=== PATIENT | female | born 1965 | race Caucasian/White ===

== ENCOUNTER 2021-04-30 07:31 | Outpatient (CLI) | payer BC, SELFPAY ==
--- NOTE | 2021-04-30 07:37 | US_ITS ---
STUDY: THYROID ULTRASOUND REASON FOR EXAM: Female, 55 years old. History of thyroid nodules. TECHNIQUE: Ultrasound evaluation of the thyroid was performed with real-time and static strange-scale imaging. COMPARISON: None. FINDINGS: RIGHT LOBE: The right lobe of the thyroid gland measures 5.2 cm x 2.5 cm x 2.7 cm. There is a homogeneous echotexture. There is a 3.2 cm x 2.6 cm x 2.1 cm complex solid and cystic mass in the mid and lower portion of the thyroid gland. Biopsy recommended. This also evidence of a 6 mm x 5 mm x 5 mm hypoechoic solid nodule. TIRADS Category 4 LEFT LOBE: The left lobe of the thyroid gland measures 5.5 cm x 1.9 cm x 3.1 cm. There is a homogeneous echotexture. There is a 2 cm x 1.6 cm x 1.3 cm hypoechoic solid nodule in the midpole. This also evidence of a 2 cm x 1.4 cm x 1.9 cm complex solid and cystic nodule. Biopsy is recommended. TIRADS Category 4 ISTHMUS: The isthmus measures 4 . The regional lymph nodes are normal. US/Thyroid IMPRESSION: Enlarged thyroid with bilateral complex solid and cystic nodules as described. Biopsy recommended. Electronically Signed: Stefan Guerrier MD at 11:07 EST ,
== END 2021-04-30 23:59 | disposition short-term general hospital (02) ==
LOC: US 07:36
PROVIDERS: PCP Internal Medicine; Referring Provider Internal Medicine; Visit Provider Internal Medicine
DX: E04.1 Nontoxic single thyroid nodule (principal)
CPT/HCPCS: 76536

== ENCOUNTER 2021-05-14 15:32 | Outpatient (CLI) | payer BC, SELFPAY ==
--- NOTE | 2021-05-14 12:30 | ASPS_PTH ---
PATIENT: JANET SEO [facility]: [facility] U#:[id number] AGE/SX: 55/F ROOM: RE05/14/[address]: Dr. Sean Sanchez MD : 1965 BED: DIS: 05/14/2021 SPEC #: [id number] RECD: 05/14/21 15:24 STATUS: BC ISADORA #: [id number] MOODY: 05/14/21 12:[address]: Sean Sanchez DEPT: CYTOLOGY RECD BY: Ankita Cedillo ENTERED: 05/15/21 09:52 SP TYPE: ASPIRATION OTHR DR: Dr. María Reid MD Tissues: A - Thyroid gland, NOS B - Thyroid gland, NOS C - Thyroid gland, NOS Procedures: Special Stain Group II Cytology Other HEADER OPERATION: Bilateral thyroid fine needle aspiration PRE-OP DIAGNOSIS: Bilateral thyroid nodule TISSUE SUBMITTED: A ? Left superior thyroid nodule x8 slides, B ? Left inferior mid pole thyroid nodule x6 slides, C ? Right thyroid nodule x6 slides DIAGNOSIS CYTOLOGY A. Fine needle aspiration, left superior thyroid nodule (smears): Adequate for evaluation. Negative, consistent with benign colloid/follicular nodule. B. Fine needle aspiration, left inferior mid pole thyroid nodule (smears): Adequate for evaluation. Negative, consistent with benign colloid/follicular nodule. Cystic change present. C. Fine needle aspiration, right thyroid nodule (smears): Adequate for evaluation. Benign, consistent with colloid/follicular nodule. AM:henri 05/16/2021 CYTOLOGY STUDY Slides are reviewed. CYTOLOGY GROSS A - Received are eight smears labeled with the patient's name and designated per the requisition as left superior thyroid nodule. Submitted for staining. B - Received are six smears labeled with the patient's name and designated per the requisition as left inferior mid pole thyroid nodule. Submitted for staining. C - Received are eight smears labeled with the patient's name and designated per the requisition as right thyroid nodule. Submitted for staining. / henri 05/15/2021 TC:5 CPT: 51985 x3
== END 2021-05-14 23:59 | disposition home or self-care (01) ==
LOC: LABSPEC 15:33
PROVIDERS: PCP Internal Medicine; Visit Provider Surgery
DX: E04.2 Nontoxic multinodular goiter (principal)
CPT/HCPCS: 88161; 88313

== ENCOUNTER 2021-05-30 08:39 | Outpatient (CLI) | payer BC, SELFPAY ==
[2021-05-30 09:50] LABS: EXAGEN MAILED SPECIMEN
[2021-05-30 10:30] LABS: Color, Urine Yellow (Yellow); Glucose, Dipstick Normal (Normal); Ketone-Dipstick Negative (Negative); Leukocyte Esterase-Dipstick 100 /ul (Negative); Nitrite-Dipstick Negative (Negative); Occult Blood-Urine Negative /ul (Negative); Protein-Dipstick Negative (Negative); Urine Bilirubin Dipstick Negative (Negative); Urine Clarity Clear (Clear); Urine Urobilinogen Normal (Normal)
[2021-05-30 10:31] LABS: Absolute Lymphocyte Count 0.85 X10^3/uL (0.83-4.51); Absolute Neutrophil Count 3.2 X10^3/uL (2.0-7.7); Basophil# 0.05 X10^3/uL; Basophil% 1.1 % (0-1); Eosinophil# 0.26 X10^3/uL; Eosinophils% 5.5 % (0-5); Hematocrit 41.3 % (37-47); Hemoglobin 14.2 g/dL (12.0-15.0); Lymphocyte # 0.85 X10^3/ul (0.83-4.51); Lymphocyte % 18.1 % (19-41); Mean Corp Hgb Conc 34.4 g/dL (32-36); Mean Corpuscular Hgb 30.9 pg (27.0-32.0); Mean Corpuscular Volume 89.8 fL (81-99); Mean Platelet Vol. 12.2 fl (6.2-12.0); Monocyte# 0.31 X10^3/uL; Monocyte% 6.6 % (0-10); NRBC Flagged by Analyzer 0 % (0-5); Neutrophil # 3.21 X10^3/uL (2.7-7.7); Neutrophil % 68.5 % (47-70); Platelet Count 245 K/mm3 (150-450); RBC Distribution Width CV 12.3 % (11.6-14.6); RBC Distribution Width SD 40.2 fl (35.1-43.9); White Blood Count 4.7 K/mm3 (4.4-11.0)
[2021-05-30 10:48] LABS: International Normalized Ratio 0.9; Prothrombin Time (Protime)PT. 11.8 SECONDS (11.7-14.9)
[2021-05-30 10:49] LABS: Partial Thromboplast Time 34.4 Seconds (24.1-36.2)
[2021-05-30 11:04] LABS: ALB/GLOB Ratio 1.1 RATIO (0.9-2.4); AST(SGOT) 21 U/L (15-37); Alanine Aminotransfer ALT/SGPT 25 U/L (13-56); Albumin, Serum 3.7 g/dL (3.2-5.0); Alkaline Phosphatase 98 U/L (45-117); Anion Gap 6 (5-15); BUN 20 mg/dL (7-18); BUN/Creat Ratio 22.3 RATIO (10-20); Calcium,Total 8.4 mg/dL (8.5-10.1); Chloride 107 mmol/L (98-107); EST Glomerular Filtration Rate 70 mL/min (>60); Est Glom Filt Rate - Afr Amer 84 mL/min (>60); Globulin 3.4 g/dL (2.2-4.2); Glucose 87 mg/dL (74-106); Potassium 3.9 mmol/L (3.5-5.1); Protein, Total 7.1 g/dL (6.4-8.2); Sodium Level 139 mmol/L (136-145)
[2021-05-30 11:14] LABS: Protein:Creat Ratio 129 mg/g CRE (0-200)
[2021-05-30 11:38] LABS: Hepatitis B Surface Antibody Reactive; Hepatitis B Surface Antigen Non-Reactive (Nonreactive); Hepatitis C Antibody Non-Reactive (Nonreactive)
[2021-06-01 02:07] LABS: Dilute Prothrombin Time (dPT) 42.2 sec (0.0-47.6); Dilute Russell Viper Venom 45.4 sec (0.0-47.0); Hexagonal Phase Phospholipid 2 sec (0-11); PTT-LA 41.7 sec (0.0-51.9); Thrombin Time 18.8 sec (0.0-23.0)
[2021-06-01 15:20] LABS: Thrombin Time 19.1 sec (0.0-23.0)
[2021-06-01 15:21] LABS: Interpretation Comment: (.)
== END 2021-05-30 23:59 | disposition home or self-care (01) ==
LOC: MTLAB 08:41
PROVIDERS: PCP Internal Medicine; Referring Provider Internal Medicine Rheumatology; Visit Provider Internal Medicine Rheumatology
DX: M06.4 Inflammatory polyarthropathy (principal); R76.8 Other specified abnormal immunological findings in serum; M17.0 Bilateral primary osteoarthritis of knee; J30.9 Allergic rhinitis, unspecified
CPT/HCPCS: 36415; 80053; 81002; 82570; 84156; 85025; 85598; 85610; 85670; 85730; 86706; 86803; 87340

== ENCOUNTER → 2021-08-09 | Outpatient (CLI) | payer BC, SELFPAY ==
--- NOTE | 2021-08-09 08:21 | BI_ITS ---
MAMMOGRAPHY - BILATERAL SCREENING REASON FOR EXAM: Female, 56 years old. Routine annual screening examination. PERTINENT HISTORY: Non-contributory. TECHNIQUE: Digital bilateral breast josh (3D mammographic acquisition) in the CC and MLO projections. 2-D mediolateral oblique (MLO) and craniocaudad (CC) views of both breasts were obtained. CAD: Full Field Digital Mammography with Computer Added Detection was performed. COMPARISON: Comparison is made with prior outside examination in 11/09/2019. FINDINGS: Breast Composition: The breasts are heterogeneously dense, which may obscure small masses. There are no dominant masses or suspicious calcifications. Stable benign-appearing bilateral axillary lymph nodes. No other significant abnormalities are identified. There has been no significant change since the prior study. BI/SCRN MAMM (CAD)W/JOSH BILAT IMPRESSION: Stable bilateral screening mammogram. Yearly follow-up mammogram recommended. (A) ASSESSMENT CATEGORY: BIRADS Category 2: Benign. A letter regarding these results will be sent to the patient by the facility within 30 days. Approximately 10% of breast cancers are not detected by mammography. A normal mammogram should not delay biopsy of a clinically suspicious abnormality. [id number] Electronically Signed: Stefan Guerrier MD at 12:15 EDT ,
== END | disposition home or self-care (01) ==
LOC: OPBI 08:20
PROVIDERS: PCP Internal Medicine; Visit Provider Obstetrics & Gynecology
DX: Z12.31 Encounter for screening mammogram for malignant neoplasm of breast (principal)
CPT/HCPCS: 77063; 77067

== ENCOUNTER → 2021-09-17 | Outpatient (CLI) | payer BC, SELFPAY ==
[2021-09-17 10:31] LABS: Absolute Lymphocyte Count 0.78 X10^3/uL (0.83-4.51); Absolute Neutrophil Count 2.6 X10^3/uL (2.0-7.7); Basophil# 0.07 X10^3/uL; Basophil% 1.7 % (0-1); Eosinophil# 0.28 X10^3/uL; Hematocrit 38.5 % (37-47); Hemoglobin 13.6 g/dL (12.0-15.0); Lymphocyte # 0.78 X10^3/ul (0.83-4.51); Lymphocyte % 19.4 % (19-41); Mean Corp Hgb Conc 35.3 g/dL (32-36); Mean Corpuscular Hgb 31.5 pg (27.0-32.0); Mean Corpuscular Volume 89.1 fL (81-99); Mean Platelet Vol. 12.6 fl (6.2-12.0); Monocyte% 7.5 % (0-10); NRBC Flagged by Analyzer 0 % (0-5); Neutrophil # 2.58 X10^3/uL (2.7-7.7); Neutrophil % 64.2 % (47-70); Platelet Count 252 K/mm3 (150-450); RBC Distribution Width CV 12.1 % (11.6-14.6); RBC Distribution Width SD 38.7 fl (35.1-43.9); Red Blood Count 4.32 M/mm3 (4.2-5.4)
[2021-09-17 10:54] LABS: ALB/GLOB Ratio 1.1 RATIO (0.9-2.4); AST(SGOT) 23 U/L (15-37); Alanine Aminotransfer ALT/SGPT 29 U/L (13-56); Albumin, Serum 3.5 g/dL (3.2-5.0); Alkaline Phosphatase 87 U/L (45-117); Anion Gap 6 (5-15); BUN 21 mg/dL (7-18); BUN/Creat Ratio 21.1 RATIO (10-20); Calcium,Total 8.7 mg/dL (8.5-10.1); Chloride 112 mmol/L (98-107); EST Glomerular Filtration Rate 62 mL/min (>60); Est Glom Filt Rate - Afr Amer 75 mL/min (>60); Globulin 3.2 g/dL (2.2-4.2); Glucose 90 mg/dL (74-106); Potassium 4.1 mmol/L (3.5-5.1); Protein, Total 6.7 g/dL (6.4-8.2); Sodium Level 142 mmol/L (136-145)
== END | disposition home or self-care (01) ==
LOC: MTLAB 08:16
PROVIDERS: PCP Internal Medicine; Referring Provider Internal Medicine Rheumatology; Visit Provider Internal Medicine Rheumatology
DX: M06.4 Inflammatory polyarthropathy (principal); R76.8 Other specified abnormal immunological findings in serum; M17.0 Bilateral primary osteoarthritis of knee; J30.9 Allergic rhinitis, unspecified
CPT/HCPCS: 36415; 80053; 85025

== ENCOUNTER → 2022-04-05 | Outpatient (CLI) | payer BC, SELFPAY ==
[2022-04-05 10:09] LABS: Absolute Lymphocyte Count 0.77 X10^3/uL (0.83-4.51); Absolute Neutrophil Count 2.7 X10^3/uL (2.0-7.7); Basophil# 0.08 X10^3/uL; Eosinophil# 0.19 X10^3/uL; Eosinophils% 4.7 % (0-5); Lymphocyte # 0.77 X10^3/ul (0.83-4.51); Mean Corp Hgb Conc 35.7 g/dL (32-36); Mean Corpuscular Hgb 32.5 pg (27.0-32.0); Mean Corpuscular Volume 91.1 fL (81-99); Mean Platelet Vol. 12.3 fl (6.2-12.0); Monocyte# 0.31 X10^3/uL; Monocyte% 7.6 % (0-10); NRBC Flagged by Analyzer 0 % (0-5); Neutrophil % 66.5 % (47-70); Platelet Count 246 K/mm3 (150-450); RBC Distribution Width CV 12.1 % (11.6-14.6); RBC Distribution Width SD 39.8 fl (35.1-43.9); Red Blood Count 4.61 M/mm3 (4.2-5.4); White Blood Count 4.1 K/mm3 (4.4-11.0)
[2022-04-05 10:17] LABS: Glucose, Dipstick Normal (Normal); Ketone-Dipstick Negative (Negative); Leukocyte Esterase-Dipstick 500 /ul (Negative); Nitrite-Dipstick Negative (Negative); Occult Blood-Urine Negative /ul (Negative); Protein-Dipstick 15 mg/dl (Negative); Specific Gravity, Urine 1.025 (1.002-1.030); Urine Bilirubin Dipstick Negative (Negative); Urine Urobilinogen Normal (Normal)
[2022-04-05 10:21] LABS: Color, Urine Yellow (Yellow); Urine Clarity Clear (Clear)
[2022-04-05 10:49] LABS: ALB/GLOB Ratio 1.2 RATIO (0.9-2.4); AST(SGOT) 26 U/L (15-37); Alanine Aminotransfer ALT/SGPT 37 U/L (13-56); Albumin, Serum 3.8 g/dL (3.2-5.0); Alkaline Phosphatase 85 U/L (45-117); Anion Gap 11 (5-15); BUN 27 mg/dL (7-18); BUN/Creat Ratio 28.7 RATIO (10-20); Calcium,Total 9.4 mg/dL (8.5-10.1); Chloride 108 mmol/L (98-107); Creatinine, Serum 0.94 mg/dL (0.55-1.02); EST Glomerular Filtration Rate 66 mL/min (>60); Est Glom Filt Rate - Afr Amer 80 mL/min (>60); Globulin 3.3 g/dL (2.2-4.2); Glucose 79 mg/dL (74-106); Potassium 3.6 mmol/L (3.5-5.1); Protein, Total 7.1 g/dL (6.4-8.2); Sodium Level 141 mmol/L (136-145)
[2022-04-05 10:50] LABS: Protein, Urine (Random) 32.8 mg/dL (<11.9); Protein:Creat Ratio 273 mg/g CRE (0-200)
[2022-04-06 10:23] LABS: Complement C3 107 mg/dL (82-167)
[2022-04-08 16:20] LABS: Anti-dsDNA Ab 10 IU/mL (0-9)
== END | disposition home or self-care (01) ==
LOC: MTLAB 08:10
PROVIDERS: PCP Internal Medicine; Referring Provider Internal Medicine Rheumatology; Visit Provider Internal Medicine Rheumatology
DX: M06.4 Inflammatory polyarthropathy (principal); M32.9 Systemic lupus erythematosus, unspecified; M17.0 Bilateral primary osteoarthritis of knee; J30.9 Allergic rhinitis, unspecified; Z79.899 Other long term (current) drug therapy
CPT/HCPCS: 80053; 81002; 82570; 84156; 85025; 86160; 86225

== ENCOUNTER → 2022-07-29 | Outpatient (CLI) | payer BC, SELFPAY ==
[2022-07-29 10:24] LABS: Absolute Lymphocyte Count 0.97 X10^3/uL (0.83-4.51); Absolute Neutrophil Count 2.3 X10^3/uL (2.0-7.7); Basophil# 0.06 X10^3/uL; Basophil% 1.5 % (0-1); Eosinophil# 0.28 X10^3/uL; Eosinophils% 7.2 % (0-5); Hematocrit 39.4 % (37-47); Hemoglobin 13.6 g/dL (12.0-15.0); Lymphocyte # 0.97 X10^3/ul (0.83-4.51); Mean Corp Hgb Conc 34.5 g/dL (32-36); Mean Corpuscular Hgb 32.6 pg (27.0-32.0); Mean Corpuscular Volume 94.5 fL (81-99); Mean Platelet Vol. 12.5 fl (6.2-12.0); Monocyte% 7.7 % (0-10); NRBC Flagged by Analyzer 0 % (0-5); Neutrophil # 2.26 X10^3/uL (2.7-7.7); Neutrophil % 58.3 % (47-70); Platelet Count 215 K/mm3 (150-450); RBC Distribution Width CV 11.9 % (11.6-14.6); RBC Distribution Width SD 40.6 fl (35.1-43.9); Red Blood Count 4.17 M/mm3 (4.2-5.4); White Blood Count 3.9 K/mm3 (4.4-11.0)
[2022-07-29 10:31] LABS: Protein, Urine (Random) 24.8 mg/dL (<11.9); Protein:Creat Ratio 219 mg/g CRE (0-200)
[2022-07-29 10:38] LABS: Color, Urine Yellow (Yellow); Glucose, Dipstick Normal (Normal); Ketone-Dipstick Negative (Negative); Leukocyte Esterase-Dipstick 100 /ul (Negative); Nitrite-Dipstick Negative (Negative); Occult Blood-Urine Negative /ul (Negative); Protein-Dipstick 15 mg/dl (Negative); Urine Bilirubin Dipstick Negative (Negative); Urine Clarity Sl. Cloudy (Clear); Urine Urobilinogen Normal (Normal)
[2022-07-29 10:50] LABS: ALB/GLOB Ratio 1.1 RATIO (0.9-2.4); AST(SGOT) 22 U/L (15-37); Alanine Aminotransfer ALT/SGPT 33 U/L (13-56); Albumin, Serum 3.5 g/dL (3.2-5.0); Alkaline Phosphatase 83 U/L (45-117); Anion Gap 6 (5-15); BUN 21 mg/dL (7-18); Calcium,Total 8.8 mg/dL (8.5-10.1); Chloride 109 mmol/L (98-107); Creatinine, Serum 0.91 mg/dL (0.55-1.02); EST Glomerular Filtration Rate 68 mL/min (>60); Est Glom Filt Rate - Afr Amer 82 mL/min (>60); Globulin 3.1 g/dL (2.2-4.2); Glucose 93 mg/dL (74-106); Potassium 3.6 mmol/L (3.5-5.1); Protein, Total 6.6 g/dL (6.4-8.2); Sodium Level 144 mmol/L (136-145)
[2022-07-30 05:07] LABS: Complement C3 98 mg/dL (82-167)
[2022-07-30 13:08] LABS: Anti-dsDNA Ab 9 IU/mL (0-9)
== END | disposition home or self-care (01) ==
LOC: MTLAB 08:04
PROVIDERS: PCP Internal Medicine; Referring Provider Internal Medicine Rheumatology; Visit Provider Internal Medicine Rheumatology
DX: M06.4 Inflammatory polyarthropathy (principal); M32.9 Systemic lupus erythematosus, unspecified; Z79.899 Other long term (current) drug therapy
CPT/HCPCS: 36415; 80053; 81002; 82570; 84156; 85025; 86160; 86225

== ENCOUNTER → 2022-10-07 | Outpatient (CLI) | payer BC, SELFPAY ==
--- NOTE | 2022-10-07 07:23 | US_ITS ---
INDICATION: yearly f/u thyroid nodule EXAMINATION: Ultrasound US Thyroid (eg thyroid, parathyroid, parotid) TECHNIQUE: Holly scale and color doppler imaging was performed of the thyroid gland. COMPARISON: None. FINDINGS: RIGHT THYROID LOBE: 5.8 x 2.5 x 2.8 cm. Heterogeneous echotexture with normal vascularity. [ Nodules: 1. Anterior mid thyroid 3.2 x 3.0 x 2.0 cm mixed cystic solid hypoechoic nodule wider than tall with smooth margins and no calcifications, TI RAD 3, unchanged from 04/30/2021 2. Posterior mid thyroid 0.7 x 0.8 x 0.5 cm solid hypoechoic wider than tall smooth margins and no calcifications, TI RAD 4 unchanged from 04/30/2021 3. Inferior thyroid 0.6 x 0.6 x 0.5 cm solid hypoechoic wider than tall nodule with smooth margins and no calcifications, TI RAD 4, unchanged from 04/30/2021 4. Additional less conspicuous subcentimeter solid isoechoic nodules or pseudonodules are also present for which no imaging follow-up is required per ACR TI RADS criteria. , LEFT THYROID LOBE: 5.7 x 2.3 x 2.3 cm. Heterogeneous echotexture with normal vascularity. [No thyroid nodules are present. Nodules: 1. Anterior mid thyroid 2.0 x 1.3 x 1.6 cm solid mixed hypo and isoechoic nodule wider than tall smooth margins and no calcifications, TI RADS 4, unchanged from 04/30/2021 2. Posterior mid thyroid 2.4 x 2.0 x 1.8 cm mixed cystic solid isoechoic nodule wider than tall smooth margins and no calcifications, TI RAD 3, 2.0 x 1.9 x 1.4 cm on 04/30/2021 3. Additional less conspicuous subcentimeter solid isoechoic nodules or pseudonodules are also present ISTHMUS: 0.4cm.. Heterogeneous echotexture. No thyroid nodules are present. US/Thyroid IMPRESSION: Multinodular goiter. Stable anterior left mid thyroid 2.0 cm TI-RAD 4 and anterior right mid thyroid 3.2 cm TI-RAD 3 nodules compared with 04/30/2021. 1 year follow-up ultrasound is recommended if fine-needle aspiration is not obtained for histopathologic diagnosis. 2.4 cm left posterior mid thyroid TI-RAD 3 nodule with mild increase in size from prior exam, 1 year follow-up ultrasound is recommended by ACR TI-RADS criteria.. Electronically Signed: Austen Dumont MD at 8:33 EDT ,
== END | disposition home or self-care (01) ==
LOC: US 07:23
PROVIDERS: PCP Internal Medicine; Referring Provider Surgery; Visit Provider Surgery
DX: E04.1 Nontoxic single thyroid nodule (principal)
CPT/HCPCS: 76536

== ENCOUNTER → 2023-07-31 | Outpatient (CLI) | payer BC, SELFPAY ==
--- NOTE | 2023-07-31 12:52 | US_ITS ---
STUDY: THYROID ULTRASOUND REASON FOR EXAM: Female, 58 years old. Thyroid nodule TECHNIQUE: Ultrasound evaluation of the thyroid was performed with real-time and static strange-scale imaging. COMPARISON: 10/07/2022. FINDINGS: RIGHT LOBE: The right lobe of the thyroid gland measures 5.6 x 2.6 x 2.2 cm. There is a heterogeneous echotexture. There are multiple nodules in the right thyroid lobe. 5 dominant nodules are measured. Nodule 1 occupying a large portion of the right thyroid lobe is mixed solid and cystic. This measures 3.12 x 1.91 x 2.93 cm. Nodule 2 in the posterior right thyroid lobe is hypoechoic and behind the large right thyroid mass. This measures 0.67 x 0.5 x 0.69 cm. Nodule 3 is medial and behind the large right thyroid mass is mildly hypoechoic. It measures 0.52 x 0.47 x 0.47 cm. Nodule 4 is a adjacent the caudal surface of the large thyroid mass. This is isoechoic and measures 0.51 x 0.47 x 0.55 cm. Nodule 5 is mildly hyperechoic and in adjacent the medial surface of the large right thyroid mass. This measures 0.54 x 0.56 x 0.61 cm. LEFT LOBE: The left lobe of the thyroid gland measures 5.3 x 1.9 x 2.3 cm. There is a heterogeneous echotexture. There are multiple nodules in the left thyroid lobe. 4 dominant nodules are measured. Nodule 1 is largely solid with a small cystic component. This is located in the lower medial aspect of the left thyroid lobe measuring 2.20 x 2.08 x 1.71 cm. Nodule 2 in the upper thyroid lobe is heterogeneous in echogenicity. This measures 1.50 x 1.33 x 1.37 cm. Nodule 3 in the medial aspect of the left mid thyroid lobe is hypoechoic with posterior distal acoustic shadowing. This measures 1.01 x 0.73 x 0.87 cm. Nodule 4 is mildly hyperechoic but heterogeneous in echogenicity. This is in the upper thyroid lobe and overlies the dominant nodule. This measures 0.76 x 0.93 x 0.77 cm. ISTHMUS: The isthmus measures 0.34 cm. . US/Thyroid IMPRESSION: 1. Multiple nodules in both thyroid lobes. 5 dominant nodules in the right thyroid lobe are measured. 4 dominant nodules in the left thyroid lobe are measured. 2. Nodule 1 occupying a large portion of the right thyroid lobe is mixed solid and cystic. This measures 3.12 x 1.91 x 2.93 cm, previously 3.20 x 2.0 x 3.04 cm. This nodule is mixed cystic and solid, hyperechoic or isoechoic, [id number], smoothly marginated and contains no echogenic foci. TI-RADS points: 2. TI-RADS category: TR2. This nodule is not suspicious and no FNA or follow-up is necessary. 3. Nodule 2 in the right posterior lobe is hypoechoic and behind the large right thyroid mass. This measures 0.67 x 0.5 x 0.69 cm, previously 0.73 x 0.52 x 0.78 cm. TI-RADS points: 4. TI-RADS category: TR4. This nodule is moderately suspicious but no FNA or follow-up is necessary given the small size of this nodule. 4. Nodule 3 in the medial aspect of the right thyroid lobe is behind the large right thyroid mass. This is mildly hypoechoic and measures 0.52 x 0.47 x 0.47 cm, previously 0.57 x 0.47 x 0.55 cm. TI-RADS points: 7. TI-RADS category: TR5. This nodule is highly suspicious. Recommend follow-up thyroid ultrasounds annually for 5 years. 5. Nodule 4 in adjacent the caudal surface of the dominant right thyroid mass is isoechoic. This measures 0.51 x 0.47 x 0.55 cm, previously 0.84 x 0.65 x 0.76 cm. TI-RADS points: 3. TI-RADS category: TR3. This nodule is mildly suspicious but no FNA or follow-up is necessary given the small size of this nodule. 6. Nodule 5 is mildly hyperechoic and is adjacent the medial surface of the dominant right thyroid nodule. This measures 0.76 x 0.93 x 0.77 cm, previously 0.74 x 0.70 x 0.93 cm. TI-RADS points: 3. TI-RADS category: TR3. This nodule is mildly suspicious but no FNA or follow-up is necessary given the small size of this nodule. 7. Nodule 1 in the left thyroid lobe is located in the lower medial aspect. This is mixed solid and cystic but predominantly solid. This measures 2.20 x 2.08 x 1.71 cm, previously 1.97 x 1.33 x 1.64 cm. This nodule is mixed cystic and solid, hyperechoic or isoechoic, [id number], smoothly marginated and contains no echogenic foci. TI-RADS points: 3. TI-RADS category: TR3. This nodule is mildly suspicious. Recommend follow-up thyroid ultrasounds at 1, 3 and 5 years. 8. Nodule 2 in the left upper thyroid lobe is heterogeneous in echogenicity. This measures 1.50 x 1.33 x 1.37 cm, previously 1.19 x 0.82 x 1.13 cm. TI-RADS points: 3. TI-RADS category: TR3. This nodule is mildly suspicious. Recommend follow-up thyroid ultrasounds at 2 and 4 years. 9. Nodule 3 in the medial aspect of the left mid thyroid lobe is hypoechoic with posterior distal acoustic shadowing. This is a generation could be left side of the thyroid isthmus. This measures 1.01 x 0.73 x 0.87 cm. I am unable to find the same nodule in the comparison thyroid ultrasound. TI-RADS points: 7. TI-RADS category: TR5. This nodule is highly suspicious. Recommend FNA evaluation. 10. Nodule 4 in the left upper thyroid lobe overlies the dominant nodule. This measures 0.76 x 0.93 x 0.77 cm, previously 0.83 x 0.72 x 0.81 cm. TI-RADS points: 6. TI-RADS category: TR4. This nodule is moderately suspicious but no FNA or follow-up is necessary given the small size of this nodule. COMMENT: 5 nodules were identified in the previous thyroid ultrasound but I am unable to find some of the nodules that were described previously. Electronically Signed: Jer García MD at 13:39 EDT ,
== END | disposition home or self-care (01) ==
PROVIDERS: Referring Provider Surgery; Visit Provider Surgery
DX: E04.1 Nontoxic single thyroid nodule (principal)
CPT/HCPCS: 76536

== ENCOUNTER → 2023-08-13 | Outpatient (CLI) | payer BC, SELFPAY ==
--- NOTE | 2023-08-13 | ASPIG_PTH ---
PATIENT: JANET SEO LOC: [facility]#:[id number] AGE/SX: 58/F ROOM: RE08/13/[address]: Dr. Sean Sanchez MD : 1965 BED: DIS: 08/13/2023 SPEC #: [id number] RECD: 08/13/23 11:40 STATUS: BC MUIR #: [id number] MOODY: 08/13/23 00:[address]: Sean Sanchez DEPT: CYTOLOGY RECD BY: Papito Garcia Tissues: Thyroid gland, NOS Procedures: FNA Specimen Adequacy Special Stain Group II Surgery Specimen Level IV Cytology Other HEADER OPERATION: Left mid thyroid fine needle aspiration PRE-OP DIAGNOSIS: Thyroid nodules TISSUE SUBMITTED: Left thyroid nodule slides x6 DIAGNOSIS CYTOLOGY Left mid thyroid nodule, fine needle aspiration (smears): Atypical follicular cells noted, suspicious for papillary carcinoma, [place] Category V. Adequate for evaluation. See comment. SJ/mr 08/13/23 COMMENT Correlation with clinical, radiologic findings and appropriate follow up are necessary. Please make reference to previous specimen [id number] fine needle aspiration, left superior thyroid nodule, negative, consistent with benign follicular nodule, fine needle aspiration, left inferior mid thyroid nodule, negative, consistent with benign colloid/follicular nodule. Specimen C right thyroid nodule, fine needle aspiration thyroid nodule with diagnosis of benign consistent colloid /follicular nodule. Per recommendations and a clinician-approved plan (a call was made to the referring doctor about the recommendation), genomic testing (Afirma) has been submitted. Results will be reported as an addendum and faxed to clinician. Case has been reviewed in consultation with Dr. Agarwal who concurs with the above diagnosis. IDC:AM CYTOLOGY STUDY Slides are reviewed. CYTOLOGY GROSS Received are 6 smears labeled with the patient's name and designated per the requisition as Left thyroid nodule. Submitted for staining. Mr 08/13/23 TC:5 CPT: 74367 ADDENDUM ADDENDUM ADDENDUM ADDENDUM ADDENDUM ADDENDUM ADDENDUM ADDENDUM ADDENDUM ADDENDUM ADDENDUM ADDENDUM 08/27/2023 15:13 ADDENDUM 08/27/2023 15:13 ADDENDUM 08/27/2023 15:13 ADDENDUM 08/27/2023 15:13 ADDENDUM 08/27/2023 15:13 AFIRMA GENOMIC SEQUENCING DIESEL FLEET MECHANIC RESULTS REPORT A- Xpression [place]- No variant/fusion detected. B- Other classifiers- BRAF p. [id number] c. [id number]>A: Negative, RET/PTC1, RET/PTC3: Not detected C- MTC: Negative RESULT SUMMARY: There is insufficient published literature regarding risk of malignancy from being [place] V and Afirma XA negative. Clinical correlation and surgical resection should be considered. Please see complete report in e-chart or EMR
== END | disposition home or self-care (01) ==
LOC: LABSPEC 10:38
PROVIDERS: Referring Provider Surgery; Visit Provider Surgery
DX: E04.1 Nontoxic single thyroid nodule (principal)
CPT/HCPCS: 88161; 88172; 88305; 88313